=== PATIENT | male | born 1945 | race Caucasian/White ===

== ENCOUNTER 2017-06-12 00:07 | Inpatient (IN) | payer OTHER ==
[~2017-06-12] VITALS: Ht 167.6 cm; Wt 93.6 kg
[2017-06-12] MEDS ORDERED: KETOROLAC 60MG/2ML VIAL IM ONE (01:15)
[2017-06-12] MEDS ORDERED: ACETAMINOPHEN WITH CODEINE 300/30MG TABLET PO ONE (01:15)
[2017-06-12] MEDS ORDERED: MORPHINE SULFATE 4 MG/ML CPJ (NOT FOR IM USE) IV ONE (03:00)
[2017-06-12 03:15] LABS: BASOPHILS % 0.3 % (0.0-2.0); EOSINOPHILS % 0.3 % (0.0-5.0); HEMATOCRIT. 40.8 % (42.0-52.0); HEMOGLOBIN. 13.4 g/dL (14.0-18.0); LYMPHOCYTES % 9.5 % (20.0-50.0); MEAN CORPUSCULAR HEMOGLOBIN 26.9 pg (28.0-32.0); MEAN CORPUSCULAR VOLUME 81.8 fL (80.0-94.0); MONOCYTES % 10.2 % (2.0-8.0); NEUTROPHILS % 79.7 % (40.0-76.0); PLATELET 170 x1000/uL (130-400); RED BLOOD CELL COUNT 4.99 mill/uL (4.7-6.1); RED CELL DISTRIBUTION WIDTH 14.9 % (11.6-14.6)
[2017-06-12 03:26] LABS: CARBON DIOXIDE 24 mEq/L (21-32); CHLORIDE 109 mEq/L (98-107)
[2017-06-12] MEDS ORDERED: MORPHINE SULFATE 10 MG/ML CPJ IV NR (03:30)
[2017-06-12] MEDS ORDERED: ENOXAPARIN 40MG/0.4ML SYR SUBCUT SCH (07:45)
[2017-06-12] MEDS ORDERED: IPRATROPIUM/ALBUTEROL 0.5-3(2.5)MG/3ML NEB INH PRN (07:45)
[2017-06-12] MEDS ORDERED: CLONIDINE 0.1MG TABLET PO PRN (07:45)
[2017-06-12] MEDS ORDERED: LORAZEPAM 1MG TABLET PO PRN (07:45)
[2017-06-12] MEDS ORDERED: TRAMADOL 50MG TABLET PO PRN (07:45)
[2017-06-12] MEDS ORDERED: ONDANSETRON HCL 4MG/2ML VIAL IV PRN (07:45)
[2017-06-12] MEDS ORDERED: GUAIFENESIN 200MG/10ML SUGAR FREE UDC PO PRN (07:45)
[2017-06-12] MEDS ORDERED: MAGNESIUM/ALUMINUM HYDROXIDE/SIMETHICONE 30ML UDC PO PRN (07:45)
[2017-06-12] MEDS ORDERED: KETOROLAC 15MG/ML VIAL IV PRN (07:45)
[2017-06-12] MEDS ORDERED: NA PHOS,M-B/NA PHOS,DI-BA ENEMA 118ML PR PRN (07:45)
[2017-06-12] MEDS ORDERED: ZOLPIDEM TARTRATE 5MG TABLET PO PRN (07:45)
[2017-06-12 08:07] LABS: ETHANOL BLOOD < 10 mg/dL; HDL CHOLESTEROL 32 mg/dL (40-59); LDL CHOLESTEROL 117 mg/dL (5-100)
[2017-06-12 12:00] VITALS: BP 146/56
[2017-06-12] MEDS: FAMOTIDINE 20MG/2ML VIAL IV SCH ×2 (12:58→20:18)
[2017-06-12] MEDS: ENOXAPARIN 30MG/0.3ML SYR SUBCUT SCH ×2 (12:59→20:18)
[2017-06-12 13:12] VITALS: BP 130/53
[2017-06-12] MEDS: BACLOFEN 10MG TABLET PO SCH (14:45)
[2017-06-12 16:00] VITALS: BP 127/57
[2017-06-12 20:00] VITALS: BP 146/57
[2017-06-12] MEDS: ACETAMINOPHEN 325MG TABLET PO PRN (20:15)
[2017-06-13] VITALS (16 sets, daily range): BP systolic 100–150; BP diastolic 59–93
[2017-06-13 00:38] LABS: CLARITY URINE CLEAR (CLEAR); COLOR URINE DARK YELLOW (YELLOW); GLUCOSE URINE NEGATIVE (NEGATIVE); KETONES URINE TRACE (NEGATIVE); LEUKOCYTE ESTERASE URINE NEGATIVE (NEGATIVE); NITRITE URINE NEGATIVE (NEGATIVE); OCCULT BLOOD URINE 1+ (NEGATIVE); PROTEIN URINE 1+ (NEGATIVE); SPECIFIC GRAVITY URINE 1.028 (1.005-1.030); UROBILINOGEN URINE 0.2 E.U./dL (0.2-1.0)
[2017-06-13 00:54] LABS: *AMPHETAMINES SCREEN URINE NEGATIVE (NEGATIVE); *BARBITURATES SCREEN URINE NEGATIVE (NEGATIVE); *BENZODIAZEPINES SCREEN URINE NEGATIVE (NEGATIVE); *COCAINE SCREEN URINE NEGATIVE (NEGATIVE); CANNABINOID URINE SCREEN NEGATIVE (NEGATIVE); METHADONE URINE SCREEN NEGATIVE (NEGATIVE); OPIATES URINE SCREEN PRESUMTIVE POSITIVE (NEGATIVE); PHENCYCLIDINE URINE SCREEN NEGATIVE (NEGATIVE)
[2017-06-13] MEDS: BACLOFEN 10MG TABLET PO SCH (01:21)
[2017-06-13] MEDS: ACETAMINOPHEN 325MG TABLET PO PRN (05:06)
[2017-06-13] MEDS: FAMOTIDINE 20MG/2ML VIAL IV SCH ×2 (09:15→21:00)
[2017-06-13] MEDS: ENOXAPARIN 30MG/0.3ML SYR SUBCUT SCH ×2 (09:15→21:00)
[2017-06-13] MEDS ORDERED: SODIUM CHLORIDE 0.9% 1,000 ML IV SCH (17:45)
[2017-06-13 19:04] LABS: BASOPHILS % 0.3 % (0.0-2.0); HEMATOCRIT. 39.4 % (42.0-52.0); LYMPHOCYTES % 7.3 % (20.0-50.0); MEAN CORPUSCULAR HEMOGLOBIN 27.3 pg (28.0-32.0); MEAN PLATELET VOLUME 8.2 fl (7.4-10.4); MONOCYTES % 11.3 % (2.0-8.0); NEUTROPHILS % 81.1 % (40.0-76.0); PLATELET 151 x1000/uL (130-400); RED BLOOD CELL COUNT 4.75 mill/uL (4.7-6.1); RED CELL DISTRIBUTION WIDTH 15.7 % (11.6-14.6)
[2017-06-13 19:49] LABS: TROPONIN I 0.57 ng/mL (0.00-0.04)
[2017-06-14] VITALS (7 sets, daily range): BP systolic 144–170; BP diastolic 84–99
[2017-06-14 07:29] LABS: BASOPHILS % 0.2 % (0.0-2.0); HEMATOCRIT. 36.4 % (42.0-52.0); LYMPHOCYTES % 8.7 % (20.0-50.0); MEAN CORPUSCULAR HEMOGLOBIN 27.4 pg (28.0-32.0); MEAN CORPUSCULAR VOLUME 82.9 fL (80.0-94.0); MEAN PLATELET VOLUME 8.4 fl (7.4-10.4); MONOCYTES % 14.5 % (2.0-8.0); NEUTROPHILS % 76.6 % (40.0-76.0); PLATELET 139 x1000/uL (130-400); RED CELL DISTRIBUTION WIDTH 15.6 % (11.6-14.6)
[2017-06-14 07:57] LABS: TROPONIN I 0.45 ng/mL (0.00-0.04)
[2017-06-14] MEDS: FAMOTIDINE 20MG/2ML VIAL IV SCH (08:47)
[2017-06-14] MEDS: ENOXAPARIN 30MG/0.3ML SYR SUBCUT SCH (08:48)
[2017-06-14] MEDS ORDERED: AMLODIPINE 5MG TABLET PO NR (11:15)
[2017-06-14] MEDS ORDERED: CALCIUM CHLORIDE 1GM/10ML SYR IV ONE (11:42)
[2017-06-14] MEDS ORDERED: EPINEPHRINE 0.1MG/ML (1:10,000) 10ML SYR ONE (11:42)
[2017-06-14] MEDS ORDERED: SODIUM BICARBONATE 7.5% 0.9 MEQ/ML 50ML SYR IV ONE (11:42)
[2017-06-14] MEDS ORDERED: ATROPINE SULFATE 1MG/10ML SYR ONE (11:42)
[2017-06-14] MEDS ORDERED: AMIODARONE HCL 50MG/ML 3ML VIAL IV ONE (11:42)
[2017-06-15] MEDS ORDERED: AMLODIPINE 5MG TABLET PO SCH (09:00)
== END 2017-06-14 11:50 | disposition expired ==
LOC: ER 00:07 → 6EST 04:54 → ENRESERV 06:29 → 3WST 06-13 15:16
PROVIDERS: ADMIT Internal Medicine; ATTEND Internal Medicine
PROC: 5A12012 Performance of Cardiac Output, Single, Manual (ICD-10-PCS; principal; 2017-06-14)
DX: I21.4 Non-ST elevation (NSTEMI) myocardial infarction (principal); N17.0 Acute kidney failure with tubular necrosis; G93.40 Encephalopathy, unspecified; D64.9 Anemia, unspecified; E78.1 Pure hyperglyceridemia; E78.5 Hyperlipidemia, unspecified; G90.8 Other disorders of autonomic nervous system; Z96.653 Presence of artificial knee joint, bilateral; I10 Essential (primary) hypertension; I25.10 Atherosclerotic heart disease of native coronary artery without angina pectoris; Z87.891 Personal history of nicotine dependence; Z88.2 Allergy status to sulfonamides; Z79.899 Other long term (current) drug therapy
CPT/HCPCS: 36415; 70450; 71250; 72070; 72100; 72148; 74176; 80048; 80053; 80061; 80305; 81001; 82607; 82746; 82962; 83036; 83735; 84443; 84484; 85025; 93005; 93306; 93970; 96372; 96374; 97116; 97162; 97166; 97530; 99285; G0482; J0171; J0282; J0461; J1650; J1885; J2270; J3490; J7030